=== PATIENT | male | born 1940 | race Caucasian/White ===

== ENCOUNTER → 2016-07-25 | Outpatient (CLI) | payer OTHER | LOC: FIMAGING 16:12 | DX: R41.0 Disorientation, unspecified (principal); G31.9 Degenerative disease of nervous system, unspecified ==

== ENCOUNTER → 2016-08-07 | Outpatient (CLI) | payer OTHER | LOC: FIMAGING 10:46 | PROVIDERS: ATTEND Otolaryngology | DX: G20 Parkinson's disease (principal); R13.19 Other dysphagia ==